=== PATIENT | female | born 1945 | race Two or more races ===

== ENCOUNTER → 2020-11-03 08:00 | Outpatient (CLI) | payer OTHER ==
[~2020-11-03] VITALS: Ht 144.8 cm; Wt 83.5 kg
[~2020-11-03 08:00] MED LIST: COZAAR50 MG; NORVASC5 MG
== END | disposition home or self-care (01) ==
LOC: LAB 08:00 → EDUNIT# 08:15 → SURH 11-08 08:15 → EDSTATUS 11-08 08:15 → SURH 11-08 14:30
PROVIDERS: ATTEND Orthopaedic Surgery Sports Medicine
DX: D68.8 Other specified coagulation defects (principal); I10 Essential (primary) hypertension; Z20.828 Contact with and (suspected) exposure to other viral communicable diseases

== ENCOUNTER 2020-11-03 10:41 | Emergency (ER) | payer OTHER ==
[~2020-11-03] VITALS: Ht 144.8 cm; Wt 83.5 kg
[2020-11-03] MEDS ORDERED: NORVASC5 MG (10:53)
[2020-11-03] MEDS ORDERED: COZAAR50 MG (10:54)
== END 2020-11-03 12:14 | disposition home or self-care (01) ==
LOC: ER 10:41
DX: M25.562 Pain in left knee (principal); M25.561 Pain in right knee

== ENCOUNTER 2021-02-23 07:15 | Inpatient (IN) | payer OTHER ==
[~2021-02-23] VITALS: Ht 144.8 cm; Wt 82.6 kg
[2021-03-01] MEDS ORDERED: PANTOPRAZOLE SO40 MG (08:36)
[2021-03-01] MEDS ORDERED: DICLOFENAC POTA50 MG (08:36)
[2021-03-01] MEDS ORDERED: NAPROXEN500 MG (08:36)
[2021-03-01] MEDS ORDERED: CLONAZEPAM2 MG (08:36)
[2021-03-02] MEDS ORDERED: BACTRIM DS TAB1 EACH PO (06:23)
[2021-03-02] MEDS ORDERED: XARELTO10 MG PO (06:23)
[2021-03-02] MEDS ORDERED: INTEGRA PLUS C1 EACH PO (06:23)
[2021-03-02] MEDS ORDERED: ACETAMINOPHEN-1 EAC2 PO (06:23)
== END 2021-03-02 13:48 | DRG 470 ==
LOC: SURH 02-28 07:00 → O/R 02-28 10:52 → SURG 02-28 10:52
PROVIDERS: ADMIT Orthopaedic Surgery Sports Medicine; ATTEND Orthopaedic Surgery Sports Medicine
PROC: 0SRC0J9 Replacement of Right Knee Joint with Synthetic Substitute, Cemented, Open Approach (ICD-10-PCS; principal; 2021-02-28 07:00)
DX: M17.11 Unilateral primary osteoarthritis, right knee (principal); I10 Essential (primary) hypertension